=== PATIENT | female | born 1950 | race Caucasian/White ===

== ENCOUNTER → 2020-07-14 | Outpatient (CLI) | payer MEDICARE ==
[~2020-07-14] MED LIST: ATOR40TA78 PO; CILO100T PO; GABA100C PO; METO50TA82 PO; PANT20TA4 PO; RIVA2.5T PO; SULF1TAB24 PO
[2020-07-14 11:31] LABS: BASOPHILS # (AUTO) 0.04 x10^3/uL (0-0.1); BASOPHILS % (AUTO) 1 % (0-1); EOSINOPHILS # (AUTO) 0.19 x10^3/uL (0-0.4); EOSINOPHILS % (AUTO) 4 % (1-7); LYMPHOCYTES % (AUTO) 22 % (22-44); MD NO; MEAN CORPUSCULAR HEMOGLOBIN 30.3 pg (27.0-34.8); MEAN CORPUSCULAR HGB CONC 31.3 g/dL (32.4-35.8); MONOCYTES # (AUTO) 0.48 x10^3/uL (0.2-0.8); MONOCYTES % (AUTO) 9 % (2-9); NEUTROPHILS # (AUTO) 3.65 x10^3/uL (1.8-6.8); NEUTROPHILS % (AUTO) 66 % (42-75); PLATELET COUNT 358 x10^3/uL (130-400); RED BLOOD COUNT 3.66 x10^6/uL (3.82-5.3); RED CELL DISTRIBUTION WIDTH 18.7 % (9.6-15.2)
[2020-07-14 11:43] LABS: ALBUMIN 3.9 g/dL (3.4-5.0); ANION GAP 6 mmol/L (5-15); CALCIUM 9.2 mg/dL (8.5-10.1); CHLORIDE 107 mmol/L (98-107)
[2020-07-14 11:51] LABS: ALANINE AMINOTRANSFERASE 23 U/L (12-78); ALKALINE PHOSPHATASE 135 U/L (45-117); BILIRUBIN,TOTAL 0.2 mg/dL (0.2-1.0); CREATININE 0.94 mg/dL (0.55-1.02); TOTAL PROTEIN 8.2 g/dL (6.4-8.2)
== END | disposition home or self-care (01) ==
LOC: STAR 08:50
PROVIDERS: ATTEND Surgery
DX: Z01.812 Encounter for preprocedural laboratory examination (principal); Z20.828 Contact with and (suspected) exposure to other viral communicable diseases
CPT/HCPCS: 36415; 80053; 85025; 87635; 93005

== ENCOUNTER 2020-07-23 08:06 | Day surgery (SDC) | payer MEDICARE ==
[~2020-07-23] VITALS: Ht 167.6 cm; Wt 64.0 kg
[2020-07-23 08:36] VITALS: BP 137/70
[2020-07-23] MEDS ORDERED: MIDAZOLAM 1 MG/ML, 2ML ONE (09:49)
[2020-07-23] MEDS ORDERED: BUPIVACAINE/PF 0.25% ONE ×2 (09:50)
[2020-07-23] MEDS ORDERED: FENTANYL PF 250 MCG/5ML ONE (09:50)
[2020-07-23] MEDS ORDERED: HALOPERIDOL 5 MG/ML IV PRN (10:00)
[2020-07-23] MEDS ORDERED: morphine SULFATE 10 MG/ML, 1ML IVPush PRN (10:00)
[2020-07-23] MEDS ORDERED: hydrALAzine 20 MG/ML, 1ML IV PRN (10:00)
[2020-07-23] MEDS ORDERED: MEPERIDINE/PF 25MG/0.5ML IVPush PRN (10:00)
[2020-07-23] MEDS ORDERED: HYDROmorphone 1 MG/ML, 1ML INJ IVPush PRN (10:00)
[2020-07-23] MEDS ORDERED: PROMETHAZINE 25 MG/ML, 1ML IVPush PRN (10:00)
[2020-07-23] MEDS ORDERED: LABETALOL 5MG/ML, 20ML IV PRN (10:00)
[2020-07-23] MEDS ORDERED: ACETAMINOPHEN 325 MG TABLET PO PRN (10:00)
[2020-07-23] MEDS ORDERED: OXYcodone 5 MG/5 ML ORAL.SOL UDC PO PRN (10:00)
[2020-07-23] MEDS ORDERED: HYDROmorphone 2 MG/ML, 1ML ONE ×2 (10:17)
[2020-07-23] MEDS ORDERED: DEXAMETHASONE 4 MG/ML, 1ML ONE (10:19)
[2020-07-23] MEDS ORDERED: ONDANSETRON 2MG/ML, 2ML ONE (10:19)
[2020-07-23] MEDS ORDERED: CEFAZOLIN 1,000 MG ONE (10:19)
[2020-07-23] MEDS ORDERED: PROPOFOL 10 MG/ML, 20ML ONE (10:19)
[2020-07-23] MEDS ORDERED: ENALAPRILAT 1.25 MG/ML, 2ML ONE (11:58)
[2020-07-23] MEDS ORDERED: ENALAPRILAT 1.25 MG/ML, 2ML IV ONE (12:00)
[2020-07-23] MEDS ORDERED: PROMETHAZINE 25 MG/ML, 1ML ONE (12:25)
[2020-07-23 12:45] VITALS: BP 151/82
[2020-07-23] MEDS ORDERED: OXYC5TAB2 PO (15:23)
== END 2020-07-23 15:35 | disposition home or self-care (01) ==
LOC: OR 08:06 → 4NE 08:32 → OR 15:35
PROVIDERS: ATTEND Surgery
DX: L97.503 Non-pressure chronic ulcer of other part of unspecified foot with necrosis of muscle (principal); I10 Essential (primary) hypertension; E78.5 Hyperlipidemia, unspecified; M86.8X7 Other osteomyelitis, ankle and foot; Z87.891 Personal history of nicotine dependence; Z98.890 Other specified postprocedural states; Z79.01 Long term (current) use of anticoagulants; Z79.899 Other long term (current) drug therapy; Z88.5 Allergy status to narcotic agent; Z88.8 Allergy status to other drugs, medicaments and biological substances; Z72.89 Other problems related to lifestyle; Z82.49 Family history of ischemic heart disease and other diseases of the circulatory system
CPT/HCPCS: 11042; 11721; 73630; 87070; 87075; 87076; 87077; 87186; 87205; 88304; 88311; C1729; C5275; J0690; J1100; J1170; J2250; J2405; J2550; J2704; J3010; J3490; Q4100; G0378